=== PATIENT | male | born 1990 | race Caucasian/White ===

== ENCOUNTER 2016-10-01 13:48 | Outpatient (CLI) | payer BC ==
[~2016-10-01] VITALS: Ht 175.3 cm; Wt 118.0 kg
[~2016-10-01 13:48] MED LIST: ABILIFY 10MG TA10 MG PO; ANTIDEPRESSANT; BACTRIM DS 8001 TAB PO; CEFANEX250 MG PO; CYMBALTA 30MG30 MG PO; DESYREL 50MG50 MG PO; LEVAQUIN 5500 MG/TA1 PO; NORCO 325 MG-51 TAB PO; NORCO 325 MG-7.1 TAB PO; OXY IR5 MG; PERCOCET 325 MG1 TA2 PO; PREDNISONE10 MG PO; PREDNISONE20 MG PO; REMICADE V100 MG/VIA IV; RITALIN LA40 MG PO; VENTOLIN0.09 MG IH
[2016-10-01] MEDS ORDERED: PROTONIX 40MG T40 MG PO (14:17)
[2016-10-01 14:18] VITALS: BP 118/71; PULSE 67; TEMP 98.3
[2016-10-01 15:10] VITALS: BP 106/63; PULSE 66; TEMP 98.1
[2016-10-01 15:40] VITALS: BP 99/68; PULSE 85; TEMP 98.1
[2016-10-01 16:10] VITALS: BP 100/65; PULSE 85; TEMP 97.9
[2016-10-01 16:40] VITALS: BP 110/65; PULSE 84; TEMP 98
== END 2016-10-01 16:55 | disposition home or self-care (01) ==
LOC: EUO 13:48
DX: K50.90 Crohn's disease, unspecified, without complications (principal)
CPT/HCPCS: J1745; J7040

== ENCOUNTER 2016-12-02 13:12 | Outpatient (CLI) | payer BC ==
[~2016-12-02] VITALS: Ht 175.3 cm; Wt 121.0 kg
[~2016-12-02 13:12] MED LIST changes: +PROTONIX 40MG T40 MG PO
[2016-12-02] MEDS ORDERED: XANAX 0.5MG0.5 MG PO (14:42)
[2016-12-02] MEDS ORDERED: BRINTELLIX10 PO (14:43)
[2016-12-02 14:45] VITALS: BP 119/81; PULSE 78; TEMP 98.1
[2016-12-02 15:15] VITALS: BP 108/63; PULSE 82; TEMP 97.8
[2016-12-02 16:00] VITALS: BP 105/57; PULSE 73; TEMP 97.6
[2016-12-02 16:30] VITALS: BP 103/62; PULSE 75
[2016-12-02 17:00] VITALS: BP 116/73; PULSE 81; TEMP 98.1
== END 2016-12-02 17:08 | disposition home or self-care (01) ==
LOC: EUO 13:12
DX: K50.90 Crohn's disease, unspecified, without complications (principal)
CPT/HCPCS: J1745; J7050

== ENCOUNTER → 2016-12-21 | Outpatient (CLI) | payer BC ==
[~2016-12-21] MED LIST changes: +BRINTELLIX10 PO; +XANAX 0.5MG0.5 MG PO
== END ==
LOC: BHSO 13:50
DX: F41.1 Generalized anxiety disorder (principal)
CPT/HCPCS: 90791-AI

== ENCOUNTER → 2017-01-21 | Outpatient (CLI) | payer BC | LOC: BHSO 10:51 | DX: F41.1 Generalized anxiety disorder (principal) ==

== ENCOUNTER 2017-01-24 12:49 | Outpatient (CLI) | payer BC ==
[~2017-01-24] VITALS: Ht 175.3 cm; Wt 121.0 kg
[2017-01-24 13:30] VITALS: BP 120/78; PULSE 83; TEMP 98.7
[2017-01-24 14:00] VITALS: BP 107/67; PULSE 75; TEMP 97.6
[2017-01-24 14:30] VITALS: BP 114/77; PULSE 80; TEMP 97
[2017-01-24 15:00] VITALS: BP 120/68; PULSE 72; TEMP 98.1
[2017-01-24 15:30] VITALS: BP 128/64; PULSE 76; TEMP 97.9
== END 2017-01-24 16:41 | disposition home or self-care (01) ==
LOC: EUO 12:49
DX: K50.90 Crohn's disease, unspecified, without complications (principal)
CPT/HCPCS: J1745; J7040

== ENCOUNTER → 2017-01-27 | Outpatient (CLI) | payer BC | LOC: BHSO 13:25 | DX: F41.1 Generalized anxiety disorder (principal) ==

== ENCOUNTER 2017-03-21 10:09 | Outpatient (CLI) | payer BC ==
[~2017-03-21] VITALS: Ht 175.3 cm; Wt 121.8 kg
[2017-03-21 11:15] VITALS: BP 114/77; PULSE 72; TEMP 98.4
[2017-03-21 11:45] VITALS: BP 122/73; PULSE 80; TEMP 98.5
[2017-03-21 12:15] VITALS: BP 111/64; PULSE 78; TEMP 98
[2017-03-21 12:45] VITALS: BP 116/74; PULSE 74; TEMP 98.5
[2017-03-21 13:15] VITALS: BP 111/68; PULSE 78; TEMP 98.5
== END 2017-03-21 14:12 | disposition home or self-care (01) ==
LOC: EUO 10:09
DX: K50.90 Crohn's disease, unspecified, without complications (principal)
CPT/HCPCS: J1745; J7040

== ENCOUNTER → 2017-03-21 | Outpatient (CLI) | payer BC | LOC: BHSO 14:21 | DX: F41.1 Generalized anxiety disorder (principal) ==

== ENCOUNTER → 2017-05-04 | Outpatient (CLI) | payer BC | LOC: BHSO 14:57 | DX: F41.1 Generalized anxiety disorder (principal) ==

== ENCOUNTER → 2017-05-16 | Outpatient (CLI) | payer BC ==
[2017-05-16] VITALS (7 sets, daily range): BP systolic 99–118; BP diastolic 54–78; PULSE 64–71; TEMP 97.7–98.3
[~2017-05-16] VITALS: Ht 175.3 cm; Wt 117.0 kg
== END ==
LOC: EUO 12:49
DX: Z79.899 Other long term (current) drug therapy (principal)
CPT/HCPCS: J1745; J7050; Q5102-ZB

== ENCOUNTER → 2017-07-01 | Outpatient (CLI) | payer BC | LOC: BHSO 10:10 | DX: F33.1 Major depressive disorder, recurrent, moderate (principal) ==

== ENCOUNTER → 2017-07-11 | Outpatient (CLI) | payer BC | LOC: COL.RAD 08:08 | DX: K50.00 Crohn's disease of small intestine without complications (principal) | CPT/HCPCS: A9585 ==

== ENCOUNTER → 2017-07-29 | Outpatient (CLI) | payer BC | LOC: BHSO 11:16 | DX: F41.1 Generalized anxiety disorder (principal) ==

== ENCOUNTER 2017-08-24 14:51 | Outpatient (CLI) | payer BC ==
[~2017-08-24] VITALS: Ht 175.3 cm; Wt 117.7 kg
[2017-08-24] MEDS ORDERED: LAMICTAL200 MG PO (15:24)
[2017-08-24 15:41] VITALS: BP 119/84; PULSE 93; TEMP 98.4
[2017-08-24 16:17] VITALS: BP 110/70; PULSE 77
== END 2017-08-24 17:58 | disposition home or self-care (01) ==
LOC: EUO 14:51
DX: K50.10 Crohn's disease of large intestine without complications (principal); Z79.899 Other long term (current) drug therapy
CPT/HCPCS: J7050; Q9989

== ENCOUNTER → 2017-10-28 | Outpatient (CLI) | payer BC ==
[~2017-10-28] MED LIST changes: +LAMICTAL200 MG PO
== END ==
LOC: BHSO 13:11
DX: F41.1 Generalized anxiety disorder (principal)
CPT/HCPCS: G0463

== ENCOUNTER 2018-01-24 05:43 | Observation (INO) | payer BC ==
[~2018-01-24] VITALS: Ht 177.8 cm; Wt 115.0 kg
[2018-01-24 06:29] LABS: BASO # 0.1 (0.0-0.2); BASO % 0.6 % (0.0-2.0); EOS # 0.3 (0.0-0.7); EOS % 2.4 % (0-4.0); GRAN % 60.1 % (42.2-75.2); HEMATOCRIT 44.4 % (42.0-52.0); HEMOGLOBIN 14.4 g/dl (13.5-18.0); LYMPH # 3.4 (1.2-3.4); LYMPH % 28.9 % (20.0-51.0); MEAN CELL VOLUME 83 fl (80.0-100.0); MEAN CORPUSCULAR HEMOGLOBIN 27 pg (27.0-31.0); MEAN CORPUSCULAR HGB CONC 32 g/dl (33.0-37.0); MEAN PLATELET VOLUME 9.2 fl (7.4-10.4); MONO # 0.9 (0.1-0.6); MONO % 7.7 % (1.7-9.3); PLATELET COUNT 335 K/mm3 (130-400); RED BLOOD COUNT 5.38 M/mm3 (4.20-5.60); REDCELL DISTRIBUTION WIDTH-CV 12.8 % (11.5-14.5)
[2018-01-24 06:40] LABS: ALBUMIN 4.1 gm/dL (3.5-5.0); BILIRUBIN,TOTAL 0.3 mg/dL (0.0-1.0); C-REACTIVE PROTEIN 4.5 mg/dL (0.0-0.9); CALCIUM 9.4 mg/dL (8.4-10.2); CREATININE, serum 1.14 mg/dL (0.66-1.25); POTASSIUM 3.6 mmol/L (3.4-5.0); TOTAL PROTEIN 7.9 gm/dL (6.4-8.2)
[2018-01-24 10:35] VITALS: BP 108/61; PULSE 74; TEMP 98.2
[2018-01-24] MEDS ORDERED: BENTYL 10MG10 MG/CAP PO (10:56)
[2018-01-24] MEDS ORDERED: STELARA90 MG/ML SQ (10:56)
[2018-01-24 15:40] VITALS: BP 120/74; PULSE 74; TEMP 98
[2018-01-24 20:00] VITALS: BP 120/67; PULSE 79; TEMP 98.3
[2018-01-25] VITALS (7 sets, daily range): BP systolic 95–131; BP diastolic 50–857; PULSE 63–83; TEMP 97.8–99.2
[2018-01-25 07:17] LABS: BASO # 0.1 (0.0-0.2); BASO % 0.5 % (0.0-2.0); EOS # 0.3 (0.0-0.7); EOS % 2.7 % (0-4.0); GRAN % 60.6 % (42.2-75.2); HEMATOCRIT 42.9 % (42.0-52.0); HEMOGLOBIN 13.7 g/dl (13.5-18.0); LYMPH # 2.8 (1.2-3.4); LYMPH % 28.2 % (20.0-51.0); MEAN CELL VOLUME 84 fl (80.0-100.0); MEAN CORPUSCULAR HEMOGLOBIN 27 pg (27.0-31.0); MEAN CORPUSCULAR HGB CONC 32 g/dl (33.0-37.0); MEAN PLATELET VOLUME 9.3 fl (7.4-10.4); MONO # 0.8 (0.1-0.6); MONO % 7.6 % (1.7-9.3); PLATELET COUNT 295 K/mm3 (130-400); RED BLOOD COUNT 5.12 M/mm3 (4.20-5.60); REDCELL DISTRIBUTION WIDTH-CV 12.8 % (11.5-14.5)
[2018-01-25 07:25] LABS: ALBUMIN 3.7 gm/dL (3.5-5.0); BILIRUBIN,TOTAL 0.4 mg/dL (0.0-1.0); CALCIUM 9.4 mg/dL (8.4-10.2); CREATININE, serum 1.02 mg/dL (0.66-1.25); POTASSIUM 4.3 mmol/L (3.4-5.0); TOTAL PROTEIN 7.1 gm/dL (6.4-8.2)
[2018-01-26 03:43] VITALS: BP 107/58; PULSE 62; TEMP 98.1
[2018-01-26 06:31] LABS: BASO # 0.1 (0.0-0.2); BASO % 0.6 % (0.0-2.0); EOS # 0.3 (0.0-0.7); EOS % 2.7 % (0-4.0); GRAN # 7.3 (1.4-6.5); GRAN % 62.7 % (42.2-75.2); HEMATOCRIT 42.5 % (42.0-52.0); HEMOGLOBIN 13.7 g/dl (13.5-18.0); LYMPH % 25.5 % (20.0-51.0); MEAN CELL VOLUME 83 fl (80.0-100.0); MEAN CORPUSCULAR HEMOGLOBIN 27 pg (27.0-31.0); MEAN CORPUSCULAR HGB CONC 32 g/dl (33.0-37.0); MEAN PLATELET VOLUME 9.6 fl (7.4-10.4); MONO # 0.9 (0.1-0.6); PLATELET COUNT 298 K/mm3 (130-400); RED BLOOD COUNT 5.12 M/mm3 (4.20-5.60); REDCELL DISTRIBUTION WIDTH-CV 12.8 % (11.5-14.5)
[2018-01-26 06:58] LABS: ALBUMIN 3.7 gm/dL (3.5-5.0); CALCIUM 9.1 mg/dL (8.4-10.2); CREATININE, serum 1.08 mg/dL (0.66-1.25); PHOSPHOROUS 3.5 mg/dL (2.5-4.5); POTASSIUM 3.6 mmol/L (3.4-5.0)
[2018-01-26 07:05] VITALS: BP 108/66; PULSE 74; TEMP 97.5
[2018-01-26 11:10] VITALS: BP 113/71; PULSE 71; TEMP 98
[2018-01-26 15:45] VITALS: BP 109/52; PULSE 72; TEMP 98
== END 2018-01-26 18:29 | disposition home health service (06) ==
LOC: COL.ER 05:43 → SURG 07:45
PROVIDERS: Emergency Medicine; Surgery
DX: K50.90 Crohn's disease, unspecified, without complications (principal); M06.9 Rheumatoid arthritis, unspecified
CPT/HCPCS: G0378; J0744; J1170; J2405; J2550; J7030; J7120

== ENCOUNTER 2018-02-14 14:06 | Emergency (ER) | payer BC ==
[~2018-02-14] VITALS: Ht 175.3 cm; Wt 113.7 kg
[~2018-02-14 14:06] MED LIST changes: +BENTYL 10MG10 MG/CAP PO; +STELARA90 MG/ML SQ
[2018-02-14 14:09] VITALS: BP 131/80; PULSE 105; TEMP 99.4
[2018-02-14 14:31] LABS: BASO # 0.1 (0.0-0.2); BASO % 0.5 % (0.0-2.0); EOS # 0.3 (0.0-0.7); EOS % 2.7 % (0-4.0); GRAN # 6.7 (1.4-6.5); GRAN % 61.4 % (42.2-75.2); HEMATOCRIT 48.7 % (42.0-52.0); LYMPH # 2.8 (1.2-3.4); LYMPH % 25.6 % (20.0-51.0); MEAN CELL VOLUME 81 fl (80.0-100.0); MEAN CORPUSCULAR HEMOGLOBIN 27 pg (27.0-31.0); MEAN CORPUSCULAR HGB CONC 33 g/dl (33.0-37.0); MEAN PLATELET VOLUME 9.2 fl (7.4-10.4); MONO % 9.5 % (1.7-9.3); PLATELET COUNT 340 K/mm3 (130-400); REDCELL DISTRIBUTION WIDTH-CV 12.7 % (11.5-14.5)
[2018-02-14 14:59] LABS: ALBUMIN 4.4 gm/dL (3.5-5.0); BILIRUBIN,TOTAL 0.5 mg/dL (0.0-1.0); C-REACTIVE PROTEIN 3.6 mg/dL (0.0-0.9); CALCIUM 9.9 mg/dL (8.4-10.2); CREATININE, serum 1.07 mg/dL (0.66-1.25); POTASSIUM 4.4 mmol/L (3.4-5.0); TOTAL PROTEIN 7.9 gm/dL (6.4-8.2)
[2018-02-14] MEDS ORDERED: CIPRO 500MG TA500 MG PO (16:09)
[2018-02-14] MEDS ORDERED: FLAGYL500 MG PO (16:09)
[2018-02-14] MEDS ORDERED: PERCOCET 325 MG1 TA2 PO (16:09)
[2018-02-14] MEDS ORDERED: ZOFRAN ODT4 MG PO (16:09)
== END 2018-02-14 16:26 | disposition home or self-care (01) ==
LOC: COL.ER 14:06
PROVIDERS: Emergency Medicine
DX: K50.90 Crohn's disease, unspecified, without complications (principal)
CPT/HCPCS: J1170; J2405; J7030; Q9967

== ENCOUNTER 2018-03-10 14:45 | Outpatient (RCR) | payer BC ==
[~2018-03-10] VITALS: Ht 175.3 cm; Wt 112.2 kg
[~2018-03-10 14:45] MED LIST changes: +CIPRO 500MG TA500 MG PO; +FLAGYL500 MG PO; +ZOFRAN ODT4 MG PO
[2018-03-10 14:57] VITALS: BP 134/79; PULSE 86; TEMP 98.3
[2018-03-10 16:00] VITALS: BP 124/77; PULSE 73; TEMP 98.1
[2018-03-10 16:30] VITALS: BP 112/71; PULSE 77; TEMP 98.1
[2018-05-08] MEDS ORDERED: WELLBUTRIN 75MG75 MG PO (14:47)
== END 2018-05-08 14:21 | disposition home or self-care (01) ==
LOC: EUO 14:45 → EDSTATUS 15:00 → EUO 05-08 14:21
DX: K50.90 Crohn's disease, unspecified, without complications (principal)
CPT/HCPCS: J1745; J7040

== ENCOUNTER → 2018-04-27 | Outpatient (CLI) | payer BC | LOC: BHSO 14:48 | DX: F33.41 Major depressive disorder, recurrent, in partial remission (principal) | CPT/HCPCS: G0463 ==

== ENCOUNTER 2018-05-08 14:02 | Outpatient (CLI) | payer BC ==
[~2018-05-08] VITALS: Ht 175.3 cm; Wt 115.0 kg
[2018-05-08] MEDS ORDERED: WELLBUTRIN 75MG75 MG PO (14:47)
[2018-05-08 15:13] VITALS: BP 111/71; PULSE 75; TEMP 98.3
[2018-05-08 15:45] VITALS: BP 127/67; PULSE 97; TEMP 98.3
[2018-05-08 16:15] VITALS: BP 111/74; PULSE 67; TEMP 98.5
[2018-05-08 16:50] VITALS: BP 126/76; PULSE 63; TEMP 98.6
[2018-05-08 17:20] VITALS: BP 126/74; PULSE 67; TEMP 97.3
== END 2018-05-08 17:24 | disposition home or self-care (01) ==
LOC: EUO 14:02
DX: K50.90 Crohn's disease, unspecified, without complications (principal)
CPT/HCPCS: J1745; J7040

== ENCOUNTER 2018-07-03 13:53 | Outpatient (CLI) | payer BC ==
[~2018-07-03] VITALS: Ht 175.3 cm; Wt 115.4 kg
[2018-07-03] VITALS (10 sets, daily range): BP systolic 110–139; BP diastolic 77–93; PULSE 59–100; TEMP 98.4
[~2018-07-03 13:53] MED LIST changes: +WELLBUTRIN 75MG75 MG PO
== END 2018-07-03 18:30 | disposition home or self-care (01) ==
LOC: EUO 13:53
DX: K50.90 Crohn's disease, unspecified, without complications (principal); Z79.899 Other long term (current) drug therapy
CPT/HCPCS: J1745; J7040

== ENCOUNTER 2018-08-31 14:19 | Outpatient (CLI) | payer BC ==
[~2018-08-31] VITALS: Ht 175.3 cm; Wt 114.6 kg
[2018-08-31 14:30] VITALS: BP 110/64; PULSE 77; TEMP 97.4
[2018-08-31 15:20] VITALS: BP 107/69; PULSE 79; TEMP 97.4
[2018-08-31 15:45] VITALS: BP 117/69; PULSE 80; TEMP 97.4
[2018-08-31 16:15] VITALS: BP 101/68; PULSE 83
[2018-08-31 16:46] VITALS: BP 103/62; PULSE 79; TEMP 98.1
[2018-08-31 17:10] VITALS: BP 103/68; PULSE 80; TEMP 98.2
== END 2018-08-31 18:30 | disposition home or self-care (01) ==
LOC: EUO 14:19
DX: K50.90 Crohn's disease, unspecified, without complications (principal); Z79.899 Other long term (current) drug therapy
CPT/HCPCS: J1745; J7040

== ENCOUNTER 2018-10-30 12:50 | Outpatient (CLI) | payer BC ==
[~2018-10-30] VITALS: Ht 175.3 cm; Wt 119.0 kg
[2018-10-30 13:17] VITALS: BP 121/81; PULSE 79; TEMP 98.6
[2018-10-30 14:45] VITALS: BP 107/71; PULSE 69; TEMP 98.2
[2018-10-30 15:15] VITALS: BP 115/74; PULSE 69; TEMP 98.4
[2018-10-30 15:45] VITALS: BP 120/69; PULSE 74; TEMP 98.4
[2018-10-30 16:20] VITALS: BP 111/65; PULSE 74; TEMP 98.7
--- NOTE | 2018-10-30 16:20 | NUR ---
Pt maryan Remicade well. Pt discharged per ambulation with father.
== END 2018-10-30 16:38 | disposition home or self-care (01) ==
LOC: EUO 12:50
DX: K50.90 Crohn's disease, unspecified, without complications (principal); Z79.899 Other long term (current) drug therapy
CPT/HCPCS: J7050

== ENCOUNTER → 2018-11-09 | Outpatient (CLI) | payer BC | LOC: BHSO 09:13 | DX: F31.81 Bipolar II disorder (principal) ==

== ENCOUNTER 2019-01-01 15:04 | Outpatient (CLI) | payer BC ==
[~2019-01-01] VITALS: Ht 175.3 cm; Wt 117.2 kg
[2019-01-01 16:06] VITALS: BP 117/79; PULSE 89; TEMP 97.4
[2019-01-01 16:27] VITALS: BP 103/70; PULSE 82; TEMP 97.4
[2019-01-01 16:55] VITALS: BP 115/73; PULSE 76; TEMP 97.4
[2019-01-01 17:25] VITALS: BP 108/68; PULSE 82; TEMP 97.4
[2019-01-01 17:56] VITALS: BP 112/71; PULSE 78; TEMP 97.4
== END 2019-01-01 17:57 | disposition home or self-care (01) ==
LOC: EUO 15:04
DX: K50.90 Crohn's disease, unspecified, without complications (principal); Z79.899 Other long term (current) drug therapy
CPT/HCPCS: J1745; J7050

== ENCOUNTER → 2019-01-09 | Outpatient (CLI) | payer BC | LOC: BHSO 09:01 | DX: F33.41 Major depressive disorder, recurrent, in partial remission (principal) | CPT/HCPCS: G0463 ==

== ENCOUNTER 2019-03-01 11:27 | Outpatient (CLI) | payer BC ==
[~2019-03-01] VITALS: Ht 175.3 cm; Wt 105.3 kg
[2019-03-01] MEDS ORDERED: WELLBUTRIN XL150 MG PO (12:08)
[2019-03-01 12:23] VITALS: BP 110/72; PULSE 72; TEMP 98.1
[2019-03-01 12:52] VITALS: BP 128/67; PULSE 89; TEMP 98.1
[2019-03-01 13:23] VITALS: BP 121/56; PULSE 76; TEMP 98.1
[2019-03-01 13:53] VITALS: BP 131/63; PULSE 69; TEMP 98.1
[2019-03-01 14:18] VITALS: BP 108/61; PULSE 3; TEMP 98.1
== END 2019-03-01 14:19 | disposition home or self-care (01) ==
LOC: EUO 11:27
DX: K50.90 Crohn's disease, unspecified, without complications (principal); Z79.899 Other long term (current) drug therapy
CPT/HCPCS: J1745; J7050

== ENCOUNTER → 2019-04-06 | Outpatient (CLI) | payer BC ==
[~2019-04-06] MED LIST changes: +WELLBUTRIN XL150 MG PO
== END ==
LOC: BHSO 09:10
DX: F41.1 Generalized anxiety disorder (principal)
CPT/HCPCS: G0463

== ENCOUNTER 2019-08-03 08:44 | Outpatient (CLI) | payer BC ==
[~2019-08-03] VITALS: Ht 175.3 cm; Wt 105.2 kg
[2019-08-03] VITALS (8 sets, daily range): BP systolic 113–132; BP diastolic 56–81; PULSE 68–86; TEMP 97.9–98.2
== END 2019-08-03 12:03 | disposition home or self-care (01) ==
LOC: EUO 08:44
DX: K50.90 Crohn's disease, unspecified, without complications (principal); Z79.899 Other long term (current) drug therapy
CPT/HCPCS: J1745; J7050

== ENCOUNTER → 2020-06-19 | Outpatient (CLI) | payer BC | LOC: BHSO 10:35 | DX: F33.42 Major depressive disorder, recurrent, in full remission (principal) | CPT/HCPCS: G0463 ==

== ENCOUNTER → 2020-12-30 | Outpatient (CLI) | payer BC | LOC: COL.RAD 11:29 | DX: R59.0 Localized enlarged lymph nodes (principal) ==

== ENCOUNTER → 2021-01-21 | Outpatient (CLI) | payer BC ==
[~2021-01-21] VITALS: Ht 175.3 cm; Wt 123.2 kg
[2021-01-21 07:40] VITALS: BP 124/77; PULSE 84
== END ==
LOC: COL.RAD 01-07 08:30
DX: R59.0 Localized enlarged lymph nodes (principal)
CPT/HCPCS: 32140

== ENCOUNTER 2021-02-17 11:01 | Emergency (ER) | payer BC ==
[~2021-02-17] VITALS: Ht 175.3 cm; Wt 122.7 kg
[2021-02-17 12:09] LABS: BASO # 0.1 (0.0-0.2); BASO % 0.4 % (0.0-2.0); EOS # 0.1 (0.0-0.7); EOS % 0.9 % (0-4.0); GRAN # 8.7 (1.4-6.5); GRAN % 71.6 % (42.2-75.2); HEMOGLOBIN 17.7 g/dl (13.5-18.0); LYMPH # 2.5 (1.2-3.4); LYMPH % 20.8 % (20.0-51.0); MEAN CELL VOLUME 84 fl (80.0-100.0); MEAN CORPUSCULAR HEMOGLOBIN 28 pg (27.0-31.0); MEAN CORPUSCULAR HGB CONC 33 g/dl (33.0-37.0); MEAN PLATELET VOLUME 9.4 fl (7.4-10.4); MONO # 0.7 (0.1-0.6); PLATELET COUNT 317 K/mm3 (130-400); RED BLOOD COUNT 6.32 M/mm3 (4.20-5.60); REDCELL DISTRIBUTION WIDTH-CV 12.3 % (11.5-14.5)
[2021-02-17 12:18] LABS: ALBUMIN 5.5 gm/dL (3.5-5.0); BILIRUBIN,TOTAL 0.7 mg/dL (0.0-1.0); CALCIUM 10.4 mg/dL (8.4-10.2); CREATININE, serum 1.03 (0.66-1.25); POTASSIUM 4.3 mmol/L (3.4-5.0)
[2021-02-17 12:19] LABS: HEMATOCRIT 53.2 % (42.0-52.0)
[2021-02-17 16:14] LABS: COLLECTION METHOD CLEAN CATCH
[2021-02-17 16:40] LABS: MUCOUS Present /lpf; PH 5 (5-8); SQUAMOUS EPITHELIAL None Seen /hpf; URINE APPEARANCE Hazy; URINE BACTERIA None Seen /hpf; URINE BILIRUBIN Negative (NEGATIVE); URINE BLOOD Negative (NEGATIVE); URINE COLOR Yellow; URINE GLUCOSE Negative (NEGATIVE); URINE KETONE Trace (NEGATIVE); URINE LEUKOCYTE ESTERASE Negative (NEGATIVE); URINE NITRATE Negative (NEGATIVE); URINE PROTEIN(semi-quant) 1+ (NEGATIVE); URINE UROBILINOGEN Negative (NEGATIVE)
[2021-02-17 17:00] VITALS: BP 120/84; PULSE 80; TEMP 97.6
[2021-02-17] MEDS ORDERED: ZOFRAN ODT4 MG PO (17:16)
== END 2021-02-17 17:24 | disposition home or self-care (01) ==
LOC: COL.ER 11:01
PROVIDERS: Nurse Practitioner
DX: R10.12 Left upper quadrant pain (principal); R11.2 Nausea with vomiting, unspecified; R19.7 Diarrhea, unspecified; Z20.822 Contact with and (suspected) exposure to COVID-19; Z87.891 Personal history of nicotine dependence
CPT/HCPCS: J2405; J7030

== ENCOUNTER → 2021-09-28 | Outpatient (CLI) | payer BC | LOC: COL.RAD 09-23 13:30 | DX: R22.2 Localized swelling, mass and lump, trunk (principal) ==

== ENCOUNTER 2022-03-24 12:54 | Outpatient (CLI) | payer BC ==
[~2022-03-24] VITALS: Ht 175.3 cm; Wt 127.8 kg
[2022-03-24 13:17] LABS: BASO # 0.1 K/mm3 (0.0-0.2); BASO % 0.6 % (0.0-2.0); EOS # 0.2 K/mm3 (0.0-0.7); EOS % 2.2 % (0.0-4.0); GRAN # 5.3 K/mm3 (1.4-6.5); HEMATOCRIT 46.1 % (42.0-52.0); HEMOGLOBIN 15.5 g/dl (13.5-18.0); LYMPH # 3.2 K/mm3 (1.2-3.4); LYMPH % 33.7 % (20.0-51.0); MEAN CELL VOLUME 83 fl (80.0-100.0); MEAN CORPUSCULAR HEMOGLOBIN 28 pg (27-31); MEAN CORPUSCULAR HGB CONC 34 g/dl (33.0-37.0); MEAN PLATELET VOLUME 10.2 fl (7.4-10.4); MONO # 0.7 K/mm3 (0.1-0.6); MONO % 7.2 % (1.7-9.3); PLATELET COUNT 216 K/mm3 (130-400); RED BLOOD COUNT 5.59 M/mm3 (4.20-5.60); REDCELL DISTRIBUTION WIDTH-CV 12.7 % (11.5-14.5)
[2022-03-24 14:08] LABS: ALBUMIN 4.6 gm/dL (3.5-5.0); BILIRUBIN,TOTAL 0.5 mg/dL (0.2-1.2); CALCIUM 9.6 mg/dL (8.4-10.2); CREATININE, serum 1.09 mg/dL (0.72-1.25); POTASSIUM 3.9 mmol/L (3.5-4.5); TOTAL PROTEIN 7.9 gm/dL (6.2-8.1)
[2022-03-24] MEDS ORDERED: REMICADE V100 MG/VIA IV (15:13)
[2022-03-24 15:17] VITALS: BP 118/79; PULSE 89; TEMP 98.6
[2022-03-24 15:30] VITALS: BP 18/79; PULSE 114
[2022-03-24 16:00] VITALS: BP 136/76; PULSE 76
[2022-03-24 16:30] VITALS: BP 112/67; PULSE 82
[2022-03-24 17:00] VITALS: BP 115/76; PULSE 85
[2022-03-24 17:30] VITALS: BP 118/76; PULSE 82
== END 2022-03-24 17:51 | disposition home or self-care (01) ==
LOC: EUO 12:54
PROVIDERS: Internal Medicine Gastroenterology
DX: K50.90 Crohn's disease, unspecified, without complications (principal)
CPT/HCPCS: J1745; J7050

== ENCOUNTER 2022-05-21 12:14 | Outpatient (CLI) | payer BC ==
[~2022-05-21] VITALS: Ht 175.3 cm; Wt 127.5 kg
[2022-05-21 13:18] LABS: BASO % 0.5 % (0.0-2.0); EOS # 0.2 K/mm3 (0.0-0.7); EOS % 2.1 % (0.0-4.0); GRAN # 4.6 K/mm3 (1.4-6.5); GRAN % 56.5 % (42.2-75.2); HEMATOCRIT 47.9 % (42.0-52.0); HEMOGLOBIN 16.3 g/dl (13.5-18.0); LYMPH # 2.8 K/mm3 (1.2-3.4); LYMPH % 34.4 % (20.0-51.0); MEAN CELL VOLUME 84 fl (80.0-100.0); MEAN CORPUSCULAR HEMOGLOBIN 29 pg (27-31); MEAN CORPUSCULAR HGB CONC 34 g/dl (33.0-37.0); MEAN PLATELET VOLUME 9.4 fl (7.4-10.4); MONO # 0.5 K/mm3 (0.1-0.6); MONO % 6.3 % (1.7-9.3); PLATELET COUNT 286 K/mm3 (130-400); REDCELL DISTRIBUTION WIDTH-CV 12.6 % (11.5-14.5)
[2022-05-21 13:35] LABS: ALBUMIN 4.4 gm/dL (3.5-5.0); BILIRUBIN,TOTAL 0.3 mg/dL (0.2-1.2); CALCIUM 9.6 mg/dL (8.4-10.2); CREATININE, serum 1.15 mg/dL (0.72-1.25); POTASSIUM 3.7 mmol/L (3.5-4.5); TOTAL PROTEIN 7.7 gm/dL (6.2-8.1)
[2022-05-21 14:27] VITALS: BP 128/77; PULSE 82; TEMP 98.6
[2022-05-21 15:00] VITALS: BP 117/74; PULSE 83
[2022-05-21 15:30] VITALS: BP 124/75; PULSE 82
[2022-05-21 16:00] VITALS: BP 129/76; PULSE 67
[2022-05-21 16:30] VITALS: BP 117/71; PULSE 81
== END 2022-05-21 16:45 | disposition home or self-care (01) ==
LOC: EUO 12:14
PROVIDERS: Internal Medicine Gastroenterology
DX: K50.90 Crohn's disease, unspecified, without complications (principal)
CPT/HCPCS: J1745; J7050

== ENCOUNTER 2022-06-02 10:13 | Emergency (ER) | payer BC ==
[~2022-06-02] VITALS: Ht 175.3 cm; Wt 128.2 kg
[2022-06-02 10:24] VITALS: TEMP 98.9
[2022-06-02 11:17] LABS: COLLECTION METHOD CLEAN CATCH
[2022-06-02 11:22] LABS: BASO # 0.1 K/mm3 (0.0-0.2); BASO % 0.7 % (0.0-2.0); EOS # 0.5 K/mm3 (0.0-0.7); EOS % 5.6 % (0.0-4.0); GRAN # 5.2 K/mm3 (1.4-6.5); GRAN % 59.2 % (42.2-75.2); HEMATOCRIT 47.4 % (42.0-52.0); HEMOGLOBIN 16.1 g/dl (13.5-18.0); LYMPH # 2.5 K/mm3 (1.2-3.4); LYMPH % 28.2 % (20.0-51.0); MEAN CELL VOLUME 83 fl (80.0-100.0); MEAN CORPUSCULAR HEMOGLOBIN 28 pg (27-31); MEAN CORPUSCULAR HGB CONC 34 g/dl (33.0-37.0); MEAN PLATELET VOLUME 9.4 fl (7.4-10.4); MONO # 0.5 K/mm3 (0.1-0.6); MONO % 6.1 % (1.7-9.3); PLATELET COUNT 274 K/mm3 (130-400); RED BLOOD COUNT 5.69 M/mm3 (4.20-5.60); REDCELL DISTRIBUTION WIDTH-CV 12.5 % (11.5-14.5)
[2022-06-02 11:40] LABS: ALBUMIN 4.6 gm/dL (3.5-5.0); BILIRUBIN,TOTAL 0.4 mg/dL (0.2-1.2); C-REACTIVE PROTEIN 0.77 mg/dL (0.00-0.50); CALCIUM 9.9 mg/dL (8.4-10.2); CREATININE, serum 1.01 mg/dL (0.72-1.25); TOTAL PROTEIN 7.9 gm/dL (6.2-8.1)
[2022-06-02 11:47] LABS: SQUAMOUS EPITHELIAL 0-2 /hpf (0-10); URINE BACTERIA None Seen /hpf (NONE SEEN); URINE RBC 0-2 /hpf (0-2)
[2022-06-02 11:54] LABS: PH 6.5 (5.0-8.5); URINE APPEARANCE Clear (CLEAR/HAZY); URINE COLOR Yellow (YELLOW); URINE GLUCOSE Negative (NEGATIVE); URINE PROTEIN(semi-quant) Negative (NEGATIVE)
[2022-06-02 11:55] LABS: URINE BLOOD TRACE-INTACT (NEGATIVE); URINE KETONE Negative (NEGATIVE); URINE NITRATE Negative (NEGATIVE); URINE UROBILINOGEN 0.2 E.U/dL (0.2-1.0)
[2022-06-02] MEDS ORDERED: NORCO 325 MG-51 TAB PO (13:00)
[2022-06-02 13:26] VITALS: BP 120/71; PULSE 66
== END 2022-06-02 13:26 | disposition home or self-care (01) ==
LOC: COL.ER 10:13
PROVIDERS: Physician Assistant
DX: R10.32 Left lower quadrant pain (principal); R91.8 Other nonspecific abnormal finding of lung field
CPT/HCPCS: J1885; J7030; Q9967

== ENCOUNTER 2022-07-23 11:01 | Outpatient (CLI) | payer BC ==
[~2022-07-23] VITALS: Ht 175.3 cm; Wt 130.3 kg
[2022-07-23 11:44] LABS: HEMATOCRIT 47.7 % (42.0-52.0); HEMOGLOBIN 16.1 g/dl (13.5-18.0); MEAN CELL VOLUME 83 fl (80.0-100.0); MEAN CORPUSCULAR HEMOGLOBIN 28 pg (27-31); MEAN CORPUSCULAR HGB CONC 34 g/dl (33.0-37.0); MEAN PLATELET VOLUME 9.2 fl (7.4-10.4); PLATELET COUNT 270 K/mm3 (130-400); RED BLOOD COUNT 5.76 M/mm3 (4.20-5.60); REDCELL DISTRIBUTION WIDTH-CV 12.4 % (11.5-14.5)
[2022-07-23 12:00] LABS: ALBUMIN 4.5 gm/dL (3.5-5.0); BILIRUBIN,TOTAL 0.5 mg/dL (0.2-1.2); CALCIUM 9.6 mg/dL (8.4-10.2); CREATININE, serum 1.11 mg/dL (0.72-1.25); POTASSIUM 3.9 mmol/L (3.5-4.5); TOTAL PROTEIN 7.6 gm/dL (6.2-8.1)
[2022-07-23 12:45] VITALS: BP 136/85; PULSE 90; TEMP 97.7
[2022-07-23 13:24] VITALS: BP 113/74; PULSE 89
[2022-07-23 13:54] VITALS: BP 115/74; PULSE 84
[2022-07-23 14:25] VITALS: BP 118/78; PULSE 86
[2022-07-23 14:45] VITALS: BP 123/78; PULSE 93; TEMP 97.7
== END 2022-07-23 15:40 ==
LOC: EUO 11:01
PROVIDERS: Internal Medicine Gastroenterology
DX: K50.90 Crohn's disease, unspecified, without complications (principal)
CPT/HCPCS: J1745; J7050

== ENCOUNTER 2022-09-17 07:48 | Outpatient (CLI) | payer BC ==
[~2022-09-17] VITALS: Ht 175.3 cm; Wt 129.0 kg
[2022-09-17 08:23] LABS: BASO # 0.1 K/mm3 (0.0-0.2); BASO % 0.6 % (0.0-2.0); EOS # 0.2 K/mm3 (0.0-0.7); GRAN # 4.3 K/mm3 (1.4-6.5); GRAN % 54.3 % (42.2-75.2); HEMATOCRIT 47.4 % (42.0-52.0); HEMOGLOBIN 16.2 g/dl (13.5-18.0); LYMPH # 2.9 K/mm3 (1.2-3.4); LYMPH % 36.2 % (20.0-51.0); MEAN CELL VOLUME 83 fl (80.0-100.0); MEAN CORPUSCULAR HEMOGLOBIN 28 pg (27-31); MEAN CORPUSCULAR HGB CONC 34 g/dl (33.0-37.0); MEAN PLATELET VOLUME 9.3 fl (7.4-10.4); MONO # 0.5 K/mm3 (0.1-0.6); MONO % 6.6 % (1.7-9.3); PLATELET COUNT 272 K/mm3 (130-400); RED BLOOD COUNT 5.71 M/mm3 (4.20-5.60); REDCELL DISTRIBUTION WIDTH-CV 12.4 % (11.5-14.5)
[2022-09-17 08:34] VITALS: BP 130/79; PULSE 77; TEMP 98.9
[2022-09-17 08:42] LABS: ALBUMIN 4.3 gm/dL (3.5-5.0); BILIRUBIN,TOTAL 0.5 mg/dL (0.2-1.2); CALCIUM 9.7 mg/dL (8.4-10.2); CREATININE, serum 1.02 mg/dL (0.72-1.25); POTASSIUM 3.9 mmol/L (3.5-4.5); TOTAL PROTEIN 7.6 gm/dL (6.2-8.1)
[2022-09-17 09:20] VITALS: BP 129/82; PULSE 74
[2022-09-17 09:30] VITALS: BP 119/91; PULSE 78
[2022-09-17 10:00] VITALS: BP 124/84; PULSE 80
[2022-09-17 10:30] VITALS: BP 128/88; PULSE 75
[2022-09-17 11:00] VITALS: BP 122/78; PULSE 73
--- NOTE | 2022-09-17 11:30 | NUR ---
Pt tolerated infusion without issue. IV DC'd, site wrapped with coban. Pt is aware that updated PA information is needed before his next appt, and message was left at GI office. He exits dept with steady gait.
[2023-01-24] MEDS ORDERED: PREDNISONE50 MG PO (20:03)
[2023-03-18] MEDS ORDERED: ULTRAM 50MG TAB50 MG PO (13:41)
[2023-03-18] MEDS ORDERED: CYMBALTA 30MG30 MG PO (13:41)
[2023-03-18] MEDS ORDERED: DRAMAMINE 50MG50 MG PO (13:42)
[2023-03-18] MEDS ORDERED: WEGOVY0.5 MG/0.5 SQ (13:42)
== END 2022-09-17 11:30 | disposition home or self-care (01) ==
LOC: EUO 07:48
PROVIDERS: Internal Medicine Gastroenterology
DX: K50.90 Crohn's disease, unspecified, without complications (principal)
CPT/HCPCS: J1745; J7050

== ENCOUNTER 2022-11-12 12:02 | Outpatient (CLI) | payer BC ==
[~2022-11-12] VITALS: Ht 175.3 cm; Wt 131.0 kg
[2022-11-12 12:53] LABS: BASO # 0.1 K/mm3 (0.0-0.2); BASO % 0.5 % (0.0-2.0); EOS # 0.3 K/mm3 (0.0-0.7); EOS % 2.8 % (0.0-4.0); GRAN # 5.5 K/mm3 (1.4-6.5); GRAN % 57.3 % (42.2-75.2); HEMATOCRIT 47.9 % (42.0-52.0); HEMOGLOBIN 15.8 g/dl (13.5-18.0); LYMPH # 3.1 K/mm3 (1.2-3.4); LYMPH % 32.1 % (20.0-51.0); MEAN CELL VOLUME 84 fl (80.0-100.0); MEAN CORPUSCULAR HEMOGLOBIN 28 pg (27-31); MEAN CORPUSCULAR HGB CONC 33 g/dl (33.0-37.0); MEAN PLATELET VOLUME 9.5 fl (7.4-10.4); MONO # 0.7 K/mm3 (0.1-0.6); MONO % 7.2 % (1.7-9.3); PLATELET COUNT 305 K/mm3 (130-400); RED BLOOD COUNT 5.71 M/mm3 (4.20-5.60); REDCELL DISTRIBUTION WIDTH-CV 12.5 % (11.5-14.5)
[2022-11-12 13:20] LABS: ALBUMIN 4.6 gm/dL (3.5-5.0); BILIRUBIN,TOTAL 0.3 mg/dL (0.2-1.2); CALCIUM 9.9 mg/dL (8.4-10.2); CREATININE, serum 1.13 mg/dL (0.72-1.25); POTASSIUM 3.8 mmol/L (3.5-4.5); TOTAL PROTEIN 8.1 gm/dL (6.2-8.1)
[2022-11-12 13:54] VITALS: BP 112/77; PULSE 89; TEMP 98.8
[2022-11-12 14:20] VITALS: BP 116/74; PULSE 80
[2022-11-12 14:50] VITALS: BP 114/67; PULSE 90
[2022-11-12 15:20] VITALS: PULSE 88
[2022-11-12 15:50] VITALS: BP 116/81; PULSE 85
== END 2022-11-12 18:12 | disposition home or self-care (01) ==
LOC: EUO 12:02
PROVIDERS: Internal Medicine Gastroenterology
DX: K50.90 Crohn's disease, unspecified, without complications (principal)
CPT/HCPCS: J1745; J7050

== ENCOUNTER 2022-12-07 15:45 | Outpatient (RCR) | payer BC | END 2022-12-17 | disposition home or self-care (01) | LOC: WSOT | DX: M08.00 Unspecified juvenile rheumatoid arthritis of unspecified site (principal) ==

== ENCOUNTER 2023-07-20 08:55 | Outpatient (CLI) | payer BC ==
[~2023-07-20] VITALS: Ht 175.3 cm; Wt 132.1 kg
[~2023-07-20 08:55] MED LIST changes: +DRAMAMINE 50MG50 MG PO; +PREDNISONE50 MG PO; +ULTRAM 50MG TAB50 MG PO; +WEGOVY0.5 MG/0.5 SQ
[2023-07-20 09:28] LABS: BASO # 0.1 K/mm3 (0.0-0.2); BASO % 0.8 % (0.0-2.0); EOS # 0.2 K/mm3 (0.0-0.7); EOS % 1.7 % (0.0-4.0); GRAN # 4.3 K/mm3 (1.4-6.5); GRAN % 48.5 % (42.2-75.2); HEMATOCRIT 48.1 % (42.0-52.0); HEMOGLOBIN 16.5 g/dl (13.5-18.0); LYMPH # 3.6 K/mm3 (1.2-3.4); LYMPH % 40.9 % (20.0-51.0); MEAN CELL VOLUME 83 fl (80.0-100.0); MEAN CORPUSCULAR HEMOGLOBIN 28 pg (27-31); MEAN CORPUSCULAR HGB CONC 34 g/dl (33.0-37.0); MEAN PLATELET VOLUME 9.3 fl (7.4-10.4); MONO # 0.7 K/mm3 (0.1-0.6); MONO % 7.9 % (1.7-9.3); PLATELET COUNT 273 K/mm3 (130-400); RED BLOOD COUNT 5.83 M/mm3 (4.20-5.60); REDCELL DISTRIBUTION WIDTH-CV 12.1 % (11.5-14.5)
[2023-07-20 09:35] LABS: BILIRUBIN,TOTAL 0.5 mg/dL (0.2-1.2); CREATININE, serum 0.98 mg/dL (0.72-1.25); TOTAL PROTEIN 7.4 gm/dL (6.2-8.1)
[2023-07-20 10:47] VITALS: BP 120/81; PULSE 76
[2023-07-20 11:15] VITALS: BP 112/70; PULSE 78
[2023-07-20 11:45] VITALS: BP 118/70; PULSE 81
[2023-07-20 12:15] VITALS: BP 117/71; PULSE 81
[2023-07-20 12:45] VITALS: BP 112/67; PULSE 77
--- NOTE | 2023-07-20 13:13 | NUR ---
pt tolerated infusion well and was discharged at approx 1300. pt ambulated independently to main lobby following infusion and vital signs remained within normal limits. IV discontinued and pt free from concerns and complaints at time of discharge.
== END 2023-07-20 13:00 | disposition home or self-care (01) ==
LOC: EUO 08:55
PROVIDERS: Internal Medicine Gastroenterology
DX: K50.90 Crohn's disease, unspecified, without complications (principal)
CPT/HCPCS: J7050; Q5103

== ENCOUNTER 2023-09-15 12:04 | Outpatient (CLI) | payer BC ==
[2023-09-15] VITALS (7 sets, daily range): BP systolic 108–122; BP diastolic 71–86; PULSE 83–104; TEMP 98.4
[2023-09-15 12:36] LABS: BASO # 0.1 K/mm3 (0.0-0.2); BASO % 0.7 % (0.0-2.0); EOS # 0.2 K/mm3 (0.0-0.7); EOS % 1.8 % (0.0-4.0); GRAN # 5.3 K/mm3 (1.4-6.5); GRAN % 58.2 % (42.2-75.2); HEMATOCRIT 48.8 % (42.0-52.0); HEMOGLOBIN 16.5 g/dl (13.5-18.0); LYMPH # 3.1 K/mm3 (1.2-3.4); LYMPH % 34.5 % (20.0-51.0); MEAN CELL VOLUME 83 fl (80.0-100.0); MEAN CORPUSCULAR HEMOGLOBIN 28 pg (27-31); MEAN CORPUSCULAR HGB CONC 34 g/dl (33.0-37.0); MEAN PLATELET VOLUME 9.1 fl (7.4-10.4); MONO # 0.4 K/mm3 (0.1-0.6); MONO % 4.6 % (1.7-9.3); PLATELET COUNT 282 K/mm3 (130-400); RED BLOOD COUNT 5.85 M/mm3 (4.20-5.60); REDCELL DISTRIBUTION WIDTH-CV 12.4 % (11.5-14.5)
[2023-09-15 12:54] LABS: ALBUMIN 4.4 gm/dL (3.5-5.0); BILIRUBIN,TOTAL 0.4 mg/dL (0.2-1.2); CALCIUM 9.6 mg/dL (8.4-10.2); CREATININE, serum 1.11 mg/dL (0.72-1.25); POTASSIUM 3.7 mmol/L (3.5-4.5); TOTAL PROTEIN 7.7 gm/dL (6.2-8.1)
--- NOTE | 2023-09-15 16:00 | NUR ---
Pt tolerated infusion without issue. IV DC'd, site wrapped with coban. He exits dept with steady gait.
== END 2023-09-15 16:00 | disposition home or self-care (01) ==
LOC: EUO 12:04
PROVIDERS: Internal Medicine Gastroenterology
DX: K50.90 Crohn's disease, unspecified, without complications (principal)
CPT/HCPCS: J7050; Q5103

== ENCOUNTER 2024-07-05 10:54 | Outpatient (CLI) | payer BC ==
[~2024-07-05] VITALS: Ht 175.3 cm; Wt 107.0 kg
[~2024-07-05 10:54] MED LIST changes: +ATARAX 25MG25 MG/TAB PO; +CELEXA10 MG PO; +MULTIPLE VITAMI1 CAP PO
[2024-07-05 11:23] LABS: BASO # 0.1 K/mm3 (0.0-0.2); BASO % 0.6 % (0.0-2.0); EOS # 0.2 K/mm3 (0.0-0.7); GRAN # 4.3 K/mm3 (1.4-6.5); GRAN % 54.5 % (42.2-75.2); HEMATOCRIT 46.5 % (42.0-52.0); HEMOGLOBIN 16.2 g/dl (13.5-18.0); LYMPH # 2.8 K/mm3 (1.2-3.4); LYMPH % 36.3 % (20.0-51.0); MEAN CELL VOLUME 81 fl (80.0-100.0); MEAN CORPUSCULAR HEMOGLOBIN 28 pg (27-31); MEAN CORPUSCULAR HGB CONC 35 g/dl (33.0-37.0); MEAN PLATELET VOLUME 9.9 fl (7.4-10.4); MONO # 0.5 K/mm3 (0.1-0.6); MONO % 6.3 % (1.7-9.3); PLATELET COUNT 262 K/mm3 (130-400); RED BLOOD COUNT 5.71 M/mm3 (4.20-5.60); REDCELL DISTRIBUTION WIDTH-CV 12.9 % (11.5-14.5)
[2024-07-05 11:35] LABS: ALBUMIN 4.6 g/dL (3.5-5.0); BILIRUBIN,TOTAL 0.4 mg/dL (0.2-1.2); CALCIUM 10.2 mg/dL (8.4-10.2); CREATININE, serum 0.96 mg/dL (0.72-1.25); POTASSIUM 4.2 mEq/L (3.5-4.5); TOTAL PROTEIN 7.6 g/dl (6.2-8.1)
[2024-07-05] MEDS ORDERED: diphenhydrAMINE 50 MG/ML 1 ML VIAL IV ONE (11:45)
[2024-07-05] MEDS ORDERED: NS IV ONE (11:45)
[2024-07-05] MEDS ORDERED: INFLIXIMAB IV ONE (11:45)
[2024-07-05] MEDS ORDERED: Acetaminophen 500 MG TAB PO ONE (11:45)
[2024-07-05] MEDS ORDERED: methylPREDNISolone Sod Succ 125 MG/2 ML VIAL IV ONE (11:45)
[2024-07-05 12:33] VITALS: BP 122/79; PULSE 82
[2024-07-05] MEDS ORDERED: ZEPBOUND10 MG/0.5 SQ (12:33)
[2024-07-05 12:40] VITALS: BP 119/78; PULSE 70
[2024-07-05 13:20] VITALS: BP 127/75; PULSE 74
[2024-07-05 13:40] VITALS: BP 125/74; PULSE 80
[2024-07-05 14:00] VITALS: BP 119/75; PULSE 82
[2024-07-05 14:20] VITALS: BP 124/77; PULSE 80
--- NOTE | 2024-07-05 14:51 | NUR ---
PT TOLERATED INFUSION WELL. VS REMAINED WITHIN NORMAL LIMITS. PT FREE FROM ACUTE CONCERNS AND COMPLAINTS UPON DISCHARGE. PT AMBULATED INDEPENDENTLY TO [facility]. NEXT APPOINTMENT MADE. IV DISCONTINUED.
== END 2024-07-05 14:51 | disposition home or self-care (01) ==
LOC: EUO 10:54
PROVIDERS: Internal Medicine Gastroenterology
DX: K50.90 Crohn's disease, unspecified, without complications (principal)
CPT/HCPCS: J1745; J7050